=== PATIENT | female | born 1975 | race Caucasian/White ===

== ENCOUNTER 2016-09-02 22:12 | Emergency (ER) | payer SELFPAY ==
[2016-09-03 00:46] LABS: microscopic required? YES; urine erythrocyte 2+ (NEGATIVE)
[2016-09-03 00:52] LABS: BASOPHIL % 0.3 % (0-2); PLATELET COUNT 340 x10^3mcL (130-400); RED CELL DISTRIBUTION WIDTH 13.7 % (11.5-14.5)
[2016-09-03 00:58] LABS: CALCIUM 9.1 mg/dL (8.5-10.1); CARBON DIOXIDE 28.1 mmol/L (21-32); CHLORIDE SERUM 101 mmol/L (98-107); CREATININE SERUM 0.9 mg/dL (0.6-1.0); GFR1 > 60 mL/min; GLUCOSE SERUM 105 mg/dL (74-106); POTASSIUM SERUM 3.9 mmol/L (3.5-5.1); SODIUM SERUM 135 mmol/L (136-145)
[2016-09-03 01:02] LABS: ALKALINE PHOSPHATASE 79 U/L (46-116); ALT/SGPT 21 U/L (14-59); AMYLASE 65 U/L (25-115); AST/SGOT 23 U/L (15-37); BILIRUBIN TOTAL 0.59 mg/dL (0.20-1.00); LIPASE 102 IU/L (73-393)
[2016-09-03 01:04] LABS: TOTAL PROTEIN, SERUM 8.8 g/dL (6.4-8.2)
[2016-09-03 01:50] VITALS: BP 113/83
== END 2016-09-03 01:50 | disposition home or self-care (01) ==
LOC: ED 22:12
PROVIDERS: Emergency Medicine
DX: N10 Acute pyelonephritis (principal)
CPT/HCPCS: Q0092